=== PATIENT | female | born 1950 | race Hispanic/Latino ===

== ENCOUNTER 2018-06-19 15:51 | Emergency (ER) | payer MEDICARE ==
[2018-06-19] MEDS ORDERED: SODIUM CHLORIDE 0.9% 1000ML 1,000 ML IV ONE (17:00)
[2018-06-19] MEDS ORDERED: MECLIZINE HCL 25 MG TABLET ONE (17:16)
[2018-06-19 17:28] LABS: BASOPHILS % (AUTO) 0.4 % (0.0-5.0); HEMATOCRIT 42.1 % (36-48); MEAN CORPUSCULAR HEMOGLOBIN 30.6 pg (27.0-33.0); MEAN CORPUSCULAR HGB CONC 33.2 g/dL (32.0-36.0); MEAN CORPUSCULAR VOLUME 92.1 fL (79-99); MONOCYTES % (AUTO) 7.6 % (3.0-13.0); PLATELET COUNT (AUTO) 241 K/uL (130-400); RED BLOOD CELL COUNT(AUTO) 4.57 MIL/uL (4.00-5.50); RED CELL DISTRIBUTION WIDTH 13.3 % (11.0-15.5); WHITE BLOOD COUNT (AUTO) 7.6 K/uL (4.8-10.8)
[2018-06-19 17:39] LABS: CREATININE 0.8 mg/dL (0.5-1.5); POTASSIUM 3.8 mmol/L (3.5-5.1)
[2018-06-19 17:43] LABS: ALBUMIN 4.1 g/dL (3.5-5.0); BILIRUBIN,TOTAL 0.3 mg/dL (0.2-1.0); TOTAL PROTEIN, SERUM 8.6 g/dL (6.0-8.3)
== END 2018-06-19 18:56 | disposition home or self-care (01) ==
LOC: EDH 15:51
DX: R42 Dizziness and giddiness (principal); E78.5 Hyperlipidemia, unspecified; K21.9 Gastro-esophageal reflux disease without esophagitis; Z90.710 Acquired absence of both cervix and uterus; Z88.5 Allergy status to narcotic agent
CPT/HCPCS: 36415; 70450; 80053; 85025; 93005; 96360; 99284; J7030

== ENCOUNTER → 2019-06-16 | Outpatient (CLI) | payer MEDICARE | END | disposition home or self-care (01) | LOC: RAH 07:53 | PROVIDERS: ATTEND Internal Medicine Gastroenterology | DX: R10.11 Right upper quadrant pain (principal); Z85.528 Personal history of other malignant neoplasm of kidney | CPT/HCPCS: 76700 ==

== ENCOUNTER → 2019-06-22 | Outpatient (CLI) | payer MEDICARE | END | disposition home or self-care (01) | LOC: RAH 07:17 | PROVIDERS: ATTEND Internal Medicine Gastroenterology | DX: K82.8 Other specified diseases of gallbladder (principal); R10.11 Right upper quadrant pain | CPT/HCPCS: 78227; A9537 ==

== ENCOUNTER → 2019-11-26 | Outpatient (CLI) | payer MEDICARE | END | disposition home or self-care (01) | LOC: RAH 11:04 | PROVIDERS: ATTEND Urology | DX: C64.9 Malignant neoplasm of unspecified kidney, except renal pelvis (principal) | CPT/HCPCS: 76770 ==

== ENCOUNTER → 2020-05-03 | Outpatient (CLI) | payer OTHER | END | disposition home or self-care (01) | LOC: RAH 08:23 | PROVIDERS: ATTEND Family Medicine | DX: Z13.6 Encounter for screening for cardiovascular disorders (principal) | CPT/HCPCS: 75571 ==

== ENCOUNTER 2020-07-11 14:04 | Observation (INO) | payer MEDICARE, OTHER ==
[~2020-07-11] VITALS: Ht 160 cm; Wt 51.7 kg
[2020-07-11 15:10] LABS: BASOPHILS % (AUTO) 0.4 % (0.0-5.0); HEMATOCRIT 42.4 % (36-48); LYMPHOCYTES % (AUTO) 14.7 % (21.0-51.0); MEAN CORPUSCULAR HEMOGLOBIN 30.3 pg (27.0-33.0); MEAN CORPUSCULAR HGB CONC 32.5 g/dL (32.0-36.0); MEAN CORPUSCULAR VOLUME 93.2 fL (79-99); NEUTROPHILS % (AUTO) 78.6 % (40.0-77.0); PLATELET COUNT (AUTO) 256 K/uL (130-400); RED BLOOD CELL COUNT(AUTO) 4.55 MIL/uL (4.00-5.50); RED CELL DISTRIBUTION WIDTH 12.9 % (11.0-15.5)
[2020-07-11 15:24] LABS: CREATININE 0.9 mg/dL (0.5-1.5); POTASSIUM 3.4 mmol/L (3.5-5.1)
[2020-07-11 15:29] LABS: ALBUMIN 4.3 g/dL (3.5-5.0); BILIRUBIN,TOTAL 0.3 mg/dL (0.2-1.0); TOTAL PROTEIN, SERUM 8.7 g/dL (6.0-8.3)
[2020-07-11] MEDS ORDERED: ASPIRIN 81MG CHEW TAB ONE (16:31)
[2020-07-11] MEDS ORDERED: IOHEXOL 350 MG/ML 100ML INFUS..BTL IV ONE (16:31)
[2020-07-11 17:00] LABS: THYROID STIMULATING HORMONE 1.31 uIU/mL (0.36-3.74)
[2020-07-11] MEDS ORDERED: HYDRALAZINE 20MG/ML VIAL IV PRN (17:00)
[2020-07-11] MEDS ORDERED: POTASSIUM CHLORIDE 20MEQ/100ML 100 ML IV PRN (17:00)
[2020-07-11] MEDS ORDERED: ACETAMINOPHEN 325 MG TAB PO PRN ×2 (17:00)
[2020-07-11] MEDS ORDERED: ATORVASTATIN 40 MG TABLET ONE (20:41)
[2020-07-11] MEDS ORDERED: ATORVASTATIN 40 MG TABLET PO SCH (21:00)
[2020-07-12 06:00] LABS: CREATININE 0.7 mg/dL (0.5-1.5); MAGNESIUM 2.3 mg/dL (1.80-2.40); POTASSIUM 3.9 mmol/L (3.5-5.1)
[2020-07-12 07:56] LABS: BASOPHILS % (AUTO) 0.3 % (0.0-5.0); EOSINOPHILS % (AUTO) 1.4 % (0.0-8.0); HEMATOCRIT 39.6 % (36-48); MEAN CORPUSCULAR HEMOGLOBIN 29.8 pg (27.0-33.0); MEAN CORPUSCULAR HGB CONC 32.1 g/dL (32.0-36.0); MONOCYTES % (AUTO) 7.4 % (3.0-13.0); NEUTROPHILS % (AUTO) 71.6 % (40.0-77.0); PLATELET COUNT (AUTO) 220 K/uL (130-400); RED BLOOD CELL COUNT(AUTO) 4.26 MIL/uL (4.00-5.50); RED CELL DISTRIBUTION WIDTH 12.9 % (11.0-15.5); WHITE BLOOD COUNT (AUTO) 5.8 K/uL (4.8-10.8)
[2020-07-12] MEDS ORDERED: ENOXAPARIN SODIUM 40 MG/0.4 ML SYRINGE SQ ONE (08:17)
[2020-07-12] MEDS ORDERED: ASPIRIN 81MG CHEW TAB ONE (08:17)
[2020-07-12] MEDS ORDERED: PANTOPRAZOLE 40 MG TAB DR ONE (08:18)
[2020-07-12] MEDS ORDERED: PANTOPRAZOLE 40 MG TAB DR PO SCH (09:00)
[2020-07-12] MEDS ORDERED: ENOXAPARIN SODIUM 40 MG/0.4 ML SYRINGE SQ SCH (09:00)
[2020-07-12] MEDS ORDERED: ASPIRIN 81MG CHEW TAB PO SCH (09:00)
[2020-07-12] MEDS ORDERED: ATOR40TA69 PO (10:43)
[2020-07-12] MEDS ORDERED: ASPI-1005 PO (10:43)
[2020-07-12 12:22] VITALS: BP 148/82
== END 2020-07-12 12:47 | disposition home or self-care (01) ==
LOC: EDH 14:04 → EDHIP 16:15
PROVIDERS: ADMIT Internal Medicine; ATTEND Internal Medicine
DX: G45.9 Transient cerebral ischemic attack, unspecified (principal); E78.5 Hyperlipidemia, unspecified; K21.9 Gastro-esophageal reflux disease without esophagitis; M81.0 Age-related osteoporosis without current pathological fracture; Z85.528 Personal history of other malignant neoplasm of kidney; Z90.5 Acquired absence of kidney; Z90.710 Acquired absence of both cervix and uterus; Z90.721 Acquired absence of ovaries, unilateral; Z79.899 Other long term (current) drug therapy; Z88.5 Allergy status to narcotic agent
CPT/HCPCS: 36415 ×2; 70450; 70496; 70498; 70551; 80048; 80053; 80061; 82948; 83036; 83735 ×2; 84443; 84484; 85025 ×2; 92522; 92610; 93005; 93880; 99285; G0378 ×21; J1650; Q9967

== ENCOUNTER → 2020-08-05 | Outpatient (CLI) | payer MEDICARE ==
[~2020-08-05] MED LIST: ASPI-1005 PO
== END | disposition home or self-care (01) ==
LOC: RAH 09:40
PROVIDERS: ATTEND Internal Medicine Cardiovascular Disease
DX: R00.2 Palpitations (principal); I10 Essential (primary) hypertension; R55 Syncope and collapse
CPT/HCPCS: 93306; 93356; C8929

== ENCOUNTER 2020-11-01 20:08 | Emergency (ER) | payer MEDICARE ==
[~2020-11-01] VITALS: Ht 160 cm; Wt 52.6 kg
[2020-11-01] MEDS ORDERED: OMEP40CA21 PO (20:39)
[2020-11-01] MEDS ORDERED: ROSU20TA31 PO (20:40)
[2020-11-01] MEDS ORDERED: ALEN70TA80 PO (20:41)
[2020-11-01] MEDS ORDERED: ONDANSETRON 4MG INJ IVP ONE (21:15)
[2020-11-01] MEDS ORDERED: FAMOTIDINE 20MG VIAL IV ONE (21:15)
[2020-11-01] MEDS ORDERED: LACTATED RINGERS 1000ML 1,000 ML IV ONE (21:15)
[2020-11-01 21:30] VITALS: BP 134/50
[2020-11-01 21:32] LABS: BASOPHILS % (AUTO) 0.2 % (0.0-5.0); EOSINOPHILS % (AUTO) 0.1 % (0.0-8.0); HEMATOCRIT 41.7 % (36-48); LYMPHOCYTES % (AUTO) 2.2 % (21.0-51.0); MEAN CORPUSCULAR HEMOGLOBIN 30.5 pg (27.0-33.0); MEAN CORPUSCULAR HGB CONC 31.9 g/dL (32.0-36.0); MEAN CORPUSCULAR VOLUME 95.6 fL (79-99); MONOCYTES % (AUTO) 2.8 % (3.0-13.0); NEUTROPHILS % (AUTO) 94.5 % (40.0-77.0); PLATELET COUNT (AUTO) 184 K/uL (130-400); RED BLOOD CELL COUNT(AUTO) 4.36 MIL/uL (4.00-5.50); RED CELL DISTRIBUTION WIDTH 12.9 % (11.0-15.5); WHITE BLOOD COUNT (AUTO) 8.7 K/uL (4.8-10.8)
[2020-11-01 21:39] LABS: CREATININE 0.7 mg/dL (0.5-1.5); POTASSIUM 3.8 mmol/L (3.5-5.1)
[2020-11-01 21:44] LABS: ALBUMIN 3.6 g/dL (3.5-5.0); BILIRUBIN,TOTAL 0.5 mg/dL (0.2-1.0); TOTAL PROTEIN, SERUM 7.7 g/dL (6.0-8.3)
[2020-11-01 22:33] LABS: APPEARANCE,URINE Clear (CLEAR); BILIRUBIN,URINE Negative (NEGATIVE); COLOR,URINE Yellow (YELLOW); GLUCOSE, URINE (UA) Negative (NEGATIVE); KETONES,URINE Trace mg/dL (NEGATIVE); LEUKOCYTE ESTERASE ,URINE Negative (NEGATIVE); NITRATE,URINE Negative (NEGATIVE); OCCULT BLOOD,URINE Negative (NEGATIVE); PROTEIN,URINE Negative (NEGATIVE); UROBILINOGEN,URINE 0.2 mg/dL (0.2-1.0)
[2020-11-02] VITALS: BP 136/74
[2020-11-02] MEDS ORDERED: ACETAMINOPHEN 325 MG TAB PO ONE (00:45)
[2020-11-02] MEDS ORDERED: ONDANSETRON 4MG INJ IVP SCH (01:45)
[2020-11-02 01:47] VITALS: BP 115/56
[2020-11-02] MEDS ORDERED: FAMO-136 PO (02:53)
[2020-11-02] MEDS ORDERED: ONDA4TAB4 PO (02:53)
[2020-11-02 03:24] VITALS: BP 118/54
== END 2020-11-02 03:30 | disposition home or self-care (01) ==
LOC: EDH 20:08
DX: E86.0 Dehydration (principal); R11.2 Nausea with vomiting, unspecified; M54.5 Low back pain; R51.9 Headache, unspecified; Z20.822 Contact with and (suspected) exposure to COVID-19; G89.29 Other chronic pain; M54.2 Cervicalgia; Z88.6 Allergy status to analgesic agent; Z90.710 Acquired absence of both cervix and uterus; Z90.5 Acquired absence of kidney; Z79.899 Other long term (current) drug therapy
CPT/HCPCS: 36415; 80053; 81003; 83690; 84484; 85025; 87426; 87635; 93005; 96361; 96374; 96375; 96376; 99285; C9803; J2405 ×2; J3490; J7120

== ENCOUNTER 2021-04-26 00:54 | Emergency (ER) | payer MEDICARE ==
[~2021-04-26] VITALS: Ht 160 cm; Wt 54.4 kg
[~2021-04-26 00:54] MED LIST changes: +ALEN70TA80 PO; +FAMO-136 PO; +OMEP40CA21 PO; +ONDA4TAB4 PO; +ROSU20TA31 PO
[2021-04-26 01:17] LABS: BASOPHILS % (AUTO) 0.4 % (0.0-5.0); EOSINOPHILS % (AUTO) 1.5 % (0.0-8.0); HEMATOCRIT 37.9 % (36-48); LYMPHOCYTES % (AUTO) 13.6 % (21.0-51.0); MEAN CORPUSCULAR HGB CONC 32.7 g/dL (32.0-36.0); MEAN CORPUSCULAR VOLUME 91.5 fL (79-99); MONOCYTES % (AUTO) 6.8 % (3.0-13.0); NEUTROPHILS % (AUTO) 77.3 % (40.0-77.0); PLATELET COUNT (AUTO) 191 K/uL (130-400); RED BLOOD CELL COUNT(AUTO) 4.14 MIL/uL (4.00-5.50); RED CELL DISTRIBUTION WIDTH 12.7 % (11.0-15.5)
[2021-04-26] MEDS ORDERED: ONDANSETRON 4MG INJ IVP ONE (01:30)
[2021-04-26] MEDS ORDERED: 0.9%NACL 1000ML 1,000 ML IV ONE (01:30)
[2021-04-26 01:32] LABS: CREATININE 0.8 mg/dL (0.5-1.5); POTASSIUM 3.6 mmol/L (3.5-5.1)
[2021-04-26 01:36] LABS: ALBUMIN 3.9 g/dL (3.5-5.0); BILIRUBIN,TOTAL 0.2 mg/dL (0.2-1.0); TOTAL PROTEIN, SERUM 7.4 g/dL (6.0-8.3)
[2021-04-26 02:13] VITALS: BP 114/56
[2021-04-26] MEDS ORDERED: ONDA4TAB10 PO (02:44)
== END 2021-04-26 02:56 | disposition home or self-care (01) ==
LOC: EDH 00:54
DX: E86.0 Dehydration (principal); R11.2 Nausea with vomiting, unspecified; E78.00 Pure hypercholesterolemia, unspecified; I25.10 Atherosclerotic heart disease of native coronary artery without angina pectoris; K21.9 Gastro-esophageal reflux disease without esophagitis; Z88.5 Allergy status to narcotic agent; Z79.82 Long term (current) use of aspirin; Z79.899 Other long term (current) drug therapy; Z85.528 Personal history of other malignant neoplasm of kidney; Z90.5 Acquired absence of kidney
CPT/HCPCS: 36415; 80053; 84484; 85025; 93005; 96361; 96374; 99284; J2405; J7030

== ENCOUNTER → 2021-12-07 | Outpatient (CLI) | payer MEDICARE ==
[~2021-12-07] MED LIST changes: +ONDA4TAB10 PO
== END | disposition home or self-care (01) ==
LOC: RAH 13:37
PROVIDERS: ATTEND Urology
DX: C64.9 Malignant neoplasm of unspecified kidney, except renal pelvis (principal)
CPT/HCPCS: 76770

== ENCOUNTER 2022-05-17 21:45 | Emergency (ER) | payer MEDICARE ==
[~2022-05-17] VITALS: Ht 160 cm; Wt 56.2 kg
[~2022-05-17 21:45] MED LIST changes: +0.9% NACL 500ML IV.SOLN 500 ML IV ONE
[2022-05-17] MEDS ORDERED: ONDANSETRON 4MG INJ IVP ONE (23:30)
[2022-05-17 23:51] LABS: BASOPHILS % (AUTO) 0.4 % (0.0-5.0); EOSINOPHILS % (AUTO) 1.2 % (0.0-8.0); HEMATOCRIT 42.3 % (36-48); LYMPHOCYTES % (AUTO) 9.7 % (21.0-51.0); MEAN CORPUSCULAR HEMOGLOBIN 29.2 pg (27.0-33.0); MEAN CORPUSCULAR HGB CONC 31.7 g/dL (32.0-36.0); MEAN CORPUSCULAR VOLUME 92.2 fL (79-99); MONOCYTES % (AUTO) 6.4 % (3.0-13.0); NEUTROPHILS % (AUTO) 82.2 % (40.0-77.0); PLATELET COUNT (AUTO) 229 K/uL (130-400); RED BLOOD CELL COUNT(AUTO) 4.59 MIL/uL (4.00-5.50); RED CELL DISTRIBUTION WIDTH 12.8 % (11.0-15.5); WHITE BLOOD COUNT (AUTO) 7.6 K/uL (4.8-10.8)
[2022-05-17 23:52] LABS: APPEARANCE,URINE CLEAR (CLEAR); BILIRUBIN,URINE NEGATIVE (NEGATIVE); COLOR,URINE COLORLESS (YELLOW); GLUCOSE, URINE (UA) NEGATIVE (NEGATIVE); KETONES,URINE NEGATIVE (NEGATIVE); LEUKOCYTE ESTERASE ,URINE 500 Leu/uL (NEGATIVE); NITRATE,URINE NEGATIVE (NEGATIVE); OCCULT BLOOD,URINE NEGATIVE (NEGATIVE); PH,URINE 6.5 (5.0-8.0); PROTEIN,URINE NEGATIVE (NEGATIVE); UROBILINOGEN,URINE 0.2 mg/dL (0.2-1.0)
[2022-05-17 23:55] LABS: BACTERIA,URINE RARE /HPF (None Seen); RBC,URINE 0-1 /HPF (0-1)
[2022-05-18] MEDS ORDERED: 0.9% NACL 500ML IV.SOLN 500 ML IV ONE
[2022-05-18 00:09] LABS: ALBUMIN 4.1 g/dL (3.5-5.0); CREATININE 0.9 mg/dL (0.5-1.5); POTASSIUM 4.4 mmol/L (3.5-5.1); TOTAL PROTEIN, SERUM 8.3 g/dL (6.0-8.3)
[2022-05-18 00:54] VITALS: BP 137/39
[2022-05-18] MEDS ORDERED: ONDA4TAB10 PO (01:06)
== END 2022-05-18 02:09 | disposition home or self-care (01) ==
LOC: EDH 21:45
DX: E86.0 Dehydration (principal); R11.2 Nausea with vomiting, unspecified; M81.0 Age-related osteoporosis without current pathological fracture; R55 Syncope and collapse; R82.81 Pyuria; I25.10 Atherosclerotic heart disease of native coronary artery without angina pectoris; E78.00 Pure hypercholesterolemia, unspecified; K21.9 Gastro-esophageal reflux disease without esophagitis; Z79.82 Long term (current) use of aspirin; Z88.5 Allergy status to narcotic agent; Z79.899 Other long term (current) drug therapy; Z90.710 Acquired absence of both cervix and uterus
CPT/HCPCS: 99284; 82550; 84484; 80053; 83690; 85025; 87088; 81001; 36415; 93005; 96374; J7040; J2405; 96361

== ENCOUNTER 2023-12-27 11:09 | Emergency (ER) | payer MEDICARE ==
[~2023-12-27] VITALS: Ht 160 cm; Wt 54.4 kg
[~2023-12-27 11:09] MED LIST changes: -0.9% NACL 500ML IV.SOLN 500 ML IV ONE; +ONDA-243 PO; -ONDA4TAB10 PO; -ROSU20TA31 PO; +ROSU20TA73 PO
[2023-12-27 12:53] LABS: ADD UA MICROSCOPIC YES
[2023-12-27 12:54] LABS: APPEARANCE,URINE CLEAR (CLEAR); BILIRUBIN,URINE NEGATIVE (NEGATIVE); COLOR,URINE COLORLESS (YELLOW); GLUCOSE, URINE (UA) NEGATIVE (NEGATIVE); KETONES,URINE NEGATIVE (NEGATIVE); LEUKOCYTE ESTERASE ,URINE 75 Leu/uL (NEGATIVE); MUCUS,URINE RARE LPF (None Seen); NITRATE,URINE NEGATIVE (NEGATIVE); OCCULT BLOOD,URINE NEGATIVE (NEGATIVE); PH,URINE 6.5 (5.0-8.0); PROTEIN,URINE NEGATIVE (NEGATIVE); SQUAMOUS EPITHELIAL CELL,UR RARE /HPF (0-2); UROBILINOGEN,URINE 0.2 mg/dL (0.2-1.0); WBC,URINE 0-1 /HPF (0-1)
[2023-12-27] MEDS: CEFTRIAXONE 1G VIAL IVPB ONE (14:31)
[2023-12-27] MEDS: TRAMADOL HCL 50 MG TABLET PO ONE (14:32)
[2023-12-27] MEDS ORDERED: TRAM-530 PO (15:23)
[2023-12-27] MEDS ORDERED: CEPH500T PO (15:23)
[2023-12-27 15:27] VITALS: BP 118/54; PULSE 65; RESP 16; O2SAT 98
== END 2023-12-27 15:34 | disposition home or self-care (01) ==
LOC: EDH 11:09
DX: N39.0 Urinary tract infection, site not specified (principal); M48.061 Spinal stenosis, lumbar region without neurogenic claudication; M54.31 Sciatica, right side; E78.00 Pure hypercholesterolemia, unspecified; Z79.899 Other long term (current) drug therapy; Z88.5 Allergy status to narcotic agent
CPT/HCPCS: 99285; 96365; 72131; 87086; 81001; J0696

== ENCOUNTER → 2024-04-08 | Outpatient (CLI) | payer MEDICARE ==
[~2024-04-08] MED LIST changes: +BISA-151 PO; +CLOP-31 PO; +ERGO500093 PO; -FAMO-136 PO; +METO-408 PO; -ONDA4TAB4 PO; -ROSU20TA73 PO; +ROSU20TA98 PO
[2024-04-08 16:23] LABS: BASOPHILS # (AUTO) 0.03 K/uL (0.00-0.20); BASOPHILS % (AUTO) 0.4 % (0.0-5.0); EOSINOPHILS # (AUTO) 0.14 K/uL (0.00-0.70); EOSINOPHILS % (AUTO) 1.8 % (0.0-8.0); HEMATOCRIT 39.7 % (36-48); IMMATURE GRANULOCYTE ABSOLUTE 0.02 K/uL (0-1); LYMPHOCYTES # (AUTO) 1.7 K/uL (1.0-4.8); LYMPHOCYTES % (AUTO) 22.3 % (21.0-51.0); MEAN CORPUSCULAR HEMOGLOBIN 29.9 pg (27.0-33.0); MEAN CORPUSCULAR HGB CONC 31.5 g/dL (32.0-36.0); MONOCYTES # (AUTO) 0.6 K/uL (0.1-1.0); MONOCYTES % (AUTO) 7.9 % (3.0-13.0); NEUTROPHILS # (AUTO) 5.1 K/uL (1.8-7.7); NEUTROPHILS % (AUTO) 67.3 % (40.0-77.0); PLATELET COUNT (AUTO) 255 K/uL (130-400); RED BLOOD CELL COUNT(AUTO) 4.18 MIL/uL (4.00-5.50); RED CELL DISTRIBUTION WIDTH 13.1 % (11.0-15.5); WHITE BLOOD COUNT (AUTO) 7.6 K/uL (4.8-10.8)
[2024-04-08 17:01] LABS: CREATININE 0.9 mg/dL (0.5-1.0); POTASSIUM 3.7 mmol/L (3.5-5.1); THYROID STIMULATING HORMONE 1.39 uIU/mL (0.36-3.74)
[2024-04-08 17:24] LABS: T4 (THYROXINE) 8.9 ug/dL (4.7-13.3)
== END | disposition home or self-care (01) ==
LOC: LAB 14:32
PROVIDERS: ATTEND Internal Medicine Cardiovascular Disease
DX: R00.2 Palpitations (principal)
CPT/HCPCS: 36415; 80048; 84436; 84443; 85025

== ENCOUNTER → 2024-05-12 | Outpatient (CLI) | payer MEDICARE ==
--- NOTE | 2024-05-12 12:21 | HMCIMG ---
US RENAL SONOGRAM REASON: Malignant neoplasm of right kidney COMPARISON: None TECHNIQUE: Renal and bladder sonogram was performed. FINDINGS: Right kidney is 9.1 x 3.5 x 3.2 cm, left 9.2 x 4.7 x 4.9 cm. There is no mass, stone or hydronephrosis. There is mild deformity lower pole right kidney consistent with history of previous surgery, there is been no interval change in its appearance. Urinary bladder appears unremarkable as well. IMPRESSION: 1. Surgical changes right kidney, no focal mass identified. 2. Otherwise normal renal and bladder sonogram.
== END | disposition home or self-care (01) ==
LOC: RAH 10:01
PROVIDERS: ATTEND Family Medicine
DX: C64.1 Malignant neoplasm of right kidney, except renal pelvis (principal); N28.89 Other specified disorders of kidney and ureter; Z90.5 Acquired absence of kidney; Z98.890 Other specified postprocedural states
CPT/HCPCS: 76770

== ENCOUNTER → 2025-04-20 | Outpatient (CLI) | payer MEDICARE ==
[~2025-04-20] MED LIST changes: +CEPH500B PO
--- NOTE | 2025-04-21 02:37 | HMCIMG ---
STUDY: ABDOMINAL ULTRASOUND CLINICAL INFORMATION: Right upper quadrant pain. TECHNIQUE: Transabdominal ultrasound examination of the upper abdomen was performed using grayscale imaging with color Doppler applied as needed. COMPARISON: None provided. FINDINGS: LIVER: The liver measures approximately 15 cm in craniocaudal length. Hepatic parenchyma demonstrates homogeneous echotexture without focal lesion. No intrahepatic biliary ductal dilatation is identified. GALL BLADDER: Gallbladder is normal in size and configuration with a wall thickness of approximately 3 mm. No sonographic features of acute cholecystitis are demonstrated. BILIARY TREE: The common bile duct measures approximately 2 mm in diameter, within normal limits for caliber. No evidence of extrahepatic biliary dilatation is seen. RIGHT KIDNEY: The right kidney measures approximately 9.1 x 3.5 x 3.4 cm. Renal cortical echogenicity and corticomedullary differentiation are preserved. No focal renal mass, shadowing calculus, or hydronephrosis is identified. LEFT KIDNEY: The left kidney measures approximately 9.6 x 4.0 x 4.1 cm. Renal cortical echogenicity and corticomedullary differentiation are preserved. No focal renal mass, shadowing calculus, or hydronephrosis is identified. SPLEEN: The spleen measures approximately 8.5 x 2.1 x 2.7 cm and is normal in size and echotexture without focal lesion. AORTA AND IVC: The visualized abdominal aorta and inferior vena cava are normal in caliber and contour without aneurysmal dilatation or intraluminal abnormality. FREE FLUID: No free intraperitoneal fluid is identified. IMPRESSION: * Sonographically unremarkable right upper quadrant abdominal ultrasound with normal liver, gallbladder, biliary tree, kidneys, and spleen. * No sonographic explanation for the reported right upper quadrant pain. /[place]
== END | disposition home or self-care (01) ==
LOC: RAH 07:11
PROVIDERS: ATTEND Internal Medicine Gastroenterology
DX: R10.11 Right upper quadrant pain (principal)
CPT/HCPCS: 76700